=== PATIENT | male | born 1990 | race Caucasian/White ===

== ENCOUNTER 2019-02-17 11:01 | Emergency (ER) | payer OTHER ==
[~2019-02-17] VITALS: Ht 188 cm; Wt 70.5 kg
[2019-02-17 12:09] VITALS: BP 119/81
== END 2019-02-17 12:22 | disposition home or self-care (01) ==
LOC: EMS 11:01
DX: F13.10 Sedative, hypnotic or anxiolytic abuse, uncomplicated (principal); F11.10 Opioid abuse, uncomplicated; F17.210 Nicotine dependence, cigarettes, uncomplicated; F41.9 Anxiety disorder, unspecified

== ENCOUNTER 2019-02-20 21:36 | Emergency (ER) | payer OTHER ==
[~2019-02-20] VITALS: Ht 188 cm; Wt 70.5 kg
[2019-02-20] MEDS ORDERED: LIB25 PO (21:46)
[2019-02-20 22:45] VITALS: BP 146/91
[2019-02-20] MEDS ORDERED: IBUPROFEN 800 MG TABLET PO ONE (22:45)
[2019-02-20] MEDS ORDERED: PENICILLIN V POTASSIUM 500 MG TABLET PO ONE (22:45)
[2019-02-20] MEDS ORDERED: ACETAMINOPHEN 500 MG TABLET PO ONE (22:45)
== END 2019-02-20 22:45 | disposition home or self-care (01) ==
LOC: EMS 21:36
DX: K08.89 Other specified disorders of teeth and supporting structures (principal); F17.210 Nicotine dependence, cigarettes, uncomplicated; F11.90 Opioid use, unspecified, uncomplicated; F15.90 Other stimulant use, unspecified, uncomplicated; F41.9 Anxiety disorder, unspecified; Z79.899 Other long term (current) drug therapy
CPT/HCPCS: 99406